=== PATIENT | male | born 1985 | race African-American/Black ===

== ENCOUNTER 2019-06-17 | Emergency (ER) | payer OTHER ==
[~2019-06-17] VITALS: Ht 172.7 cm; Wt 47.6 kg
[2019-06-17 00:12] VITALS: BP 139/90
--- NOTE | 2019-06-17 00:12 | NUR ---
TO BED # 08 AMBULATORY
--- NOTE | 2019-06-17 00:25 | NUR ---
PT BIB BY SELF FOR C/O PENILE DISCHARGE X 3 DAYS. PT HAS 0/10 C/O PAIN BUT ADMITS TO SLIGHT DISCOMFORT WHEN URINATING. PT STATES DISCHARGE IS YELLOW WITH NO ODOR. PT DENIES FEVER. DENIES N/V/D. RESPIRATIONS ARE EVEN AND UNLABORED. SKIN IS WARM AND DRY TO TOUCH. PT SITTING IN BED SITTING UPRIGHT. BED IN LOWEST POSITION AND LOCKED IN PLACE. MED HX: NONE ALLERGIES: NONE.
[2019-06-17] MEDS ORDERED: cefTRIAXone 250 MG in LIDOCAINE MPF 1% 0.9 ML IM ONE (00:40)
[2019-06-17] MEDS ORDERED: AZITHROMYCIN 250 MG TAB PO ONE (00:40)
[2019-06-17 00:48] LABS: APPEARANCE,URINE SL CLOUDY (CLEAR); BILIRUBIN,URINE NEGATIVE (NEGATIVE); BLOOD, URINE 1+ (NEGATIVE); COLOR,URINE YELLOW (YELLOW); LEUKOCYTE ESTERASE ,URINE TRACE (NEGATIVE); NITRITE, URINE NEGATIVE (NEGATIVE); UGLUCOSE NEGATIVE (NEGATIVE)
--- NOTE | 2019-06-17 01:00 | NUR ---
PT RESTING IN BED SITTING UPRIGHT. RESPIRATIONS ARE EVEN AND UNLABORED. SKIN IS WARM AND DRY TO TOUCH. 0/10 C/O PAIN. BED IN LOWEST POSITION AND LOCKED IN PLACE.
[2019-06-17] MEDS ORDERED: cefTRIAXone 250 MG VIAL ONE (01:09)
[2019-06-17] MEDS ORDERED: LIDOCAINE MPF 1% 5 ML ONE (01:09)
[2019-06-17 01:14] LABS: RBC,URINE 11-20 (MOD) /HPF (0-5); WBC,URINE 20-60 /HPF (0-5)
[2019-06-17 01:39] VITALS: BP 139/90
--- NOTE | 2019-06-17 01:40 | NUR ---
Patient discharged with v/s stable. Written and verbal after care instructions given and explained. Patient alert, oriented and verbalized understanding of instructions. Ambulatory with steady gait. All questions addressed prior to discharge. ID band removed. Patient advised to follow up with PMD. Rx of PENICILLIN, BACTRIM given. Patient educated on indication of medication including possible reaction and side effects. Opportunity to ask questions provided and answered.
[2019-06-20 15:06] LABS: CHLAMYDIA TRACHOMATIS AMP DNA Negative (Negative)
== END 2019-06-17 01:40 | disposition home or self-care (01) ==
LOC: MED
DX: N39.0 Urinary tract infection, site not specified (principal)
CPT/HCPCS: 36415; 81001; 86592; 87086; 87491; 96372; 99283; J0696; J2001